=== PATIENT | female | born 1980 | race Caucasian/White ===

== ENCOUNTER 2019-05-26 10:08 | Emergency (ER) | payer OTHER ==
[~2019-05-26] VITALS: Ht 154.9 cm; Wt 54.4 kg
[2019-05-26] MEDS ORDERED: NEXIUM20 MG PO (10:22)
[2019-05-26] MEDS ORDERED: ULTRAM 50MG TAB50 MG PO (10:23)
[2019-05-26] MEDS ORDERED: ZANAFLEX2 M1 PO (10:23)
[2019-05-26] MEDS ORDERED: COZAAR 25 MG TA25 M1 PO (10:24)
[2019-05-26] MEDS ORDERED: NASAL SPRAY NASAL (10:24)
[2019-05-26] MEDS ORDERED: MUCINEX600 MG PO (10:24)
[2019-05-26] MEDS ORDERED: NORCO 5-325 TA1 EAC1 PO (11:23)
[2019-05-26] MEDS ORDERED: IBUPROFEN 600600 M1 PO (11:23)
[2019-05-26 11:40] VITALS: BP 130/72
== END 2019-05-26 11:42 | disposition home or self-care (01) ==
LOC: M.ERS 10:08 → EDBD 10:08 → M.ERS 11:42
DX: S32.2XXA Fracture of coccyx, initial encounter for closed fracture (principal); I10 Essential (primary) hypertension; W01.0XXA Fall on same level from slipping, tripping and stumbling without subsequent striking against object, initial encounter; Y93.89 Activity, other specified; Y92.89 Other specified places as the place of occurrence of the external cause; Y99.8 Other external cause status